=== PATIENT | female | born 1990 | race Asian ===

== ENCOUNTER 2018-02-24 13:43 | Emergency (ER) | payer OTHER ==
--- NOTE | 2018-02-24 15:13 | EDPHY ---
H & P Stated Complaint: ? INFLUENZA FEVER COUGH BODY ACHES Time Seen by Provider: 02/24/18 14:52 HPI/ROS: CHIEF COMPLAINT: Fever, cough, body aches HISTORY OF PRESENT ILLNESS: The patient is a 27-year-old female who speaks [place] only who comes to the emergency department complaining of fever, body aches, cough, runny nose and sore throat for the last 3 days. She is actually feeling better today in her fever is gone. She was told by friends that she may have the flu and she come to the ER. No GI symptoms. No rashes. No trauma. Severity: Moderate Modifying factors: Time REVIEW OF SYSTEMS: Constitutional: See HPI EENTM: See HPI Respiratory: See HPI Cardiac: denies: chest pain, irregular heart rate, lightheadedness, palpitations Gastrointestinal/Abdominal: denies: abdominal pain, diarrhea, nausea, vomiting, blood streaked stools Genitourinary: denies: dysuria, frequency, hematuria, pain Musculoskeletal: See HPI Skin: denies: lesions, rash, jaundice, bruising Neurological: denies: headache, numbness, paresthesia, tingling, dizziness, weakness Hematologic/Lymphatic: denies: blood clots, easy bleeding, easy bruising Immunologic/allergic: denies: HIV/AIDS, transplant 10 systems reviewed and negative except as noted EXAM: GENERAL: Well-appearing, well-nourished and in no acute distress. HEAD: Atraumatic, normocephalic. EYES: Pupils equal round and reactive to light, extraocular movements intact, sclera anicteric, conjunctiva are normal. ENT: TMs normal, nares patent, oropharynx clear without exudates. Moist mucous membranes. NECK: Normal range of motion, supple without lymphadenopathy or JVD. LUNGS: Breath sounds clear to auscultation bilaterally and equal. No wheezes rales or rhonchi. HEART: Regular rate and rhythm without murmurs, rubs or gallops. ABDOMEN: Soft, nontender, normoactive bowel sounds. No guarding, no rebound. No masses appreciated. BACK: No CVA tenderness, no spinal tenderness, step-offs or deformities EXTREMITIES: Normal range of motion, no pitting or edema. No clubbing or cyanosis. NEUROLOGICAL: Cranial nerves II through XII grossly intact. Normal speech, normal gait. 5/5 strength, normal movement in all extremities, normal sensation , normal reflexes PSYCH: Normal mood, normal affect. SKIN: Warm, dry, normal turgor, no visible rashes or lesions. 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) - Personal History LMP (Females 10-55): 15-21 Days Ago Current Tetanus Diphtheria and Acellular Pertussis (TDAP): Unsure - Medical/Surgical History Hx Asthma: No Hx Chronic Respiratory Disease: No Hx Diabetes: No Hx Cardiac Disease: No Hx Renal Disease: No Hx Cirrhosis: No Hx Alcoholism: No Hx HIV/AIDS: No Hx Splenectomy or Spleen Trauma: No Other PMH: DENIES - Family History Significant Family History: No pertinent family hx - Social History Smoking Status: Never smoked Alcohol Use: Sober Drug Use: None Constitutional: Initial Vital Signs Temperature (C) 36.8 C 02/24/18 13:52 Heart Rate 86 02/24/18 13:52 Respiratory Rate 16 02/24/18 13:52 Blood Pressure 114/67 02/24/18 13:52 O2 Sat (%) 98 02/24/18 13:52 O2 Delivery Mode Room Air Allergies/Adverse Reactions: No Known Allergies Allergy (Unverified 02/24/18 13:50) Home Medications: Medication Instructions Recorded Med For [place] Fever 02/24/18 Medical Decision Making ED Course/Re-evaluation: After considerable amount of time we are able to get a queen's counsel on the audio line only. The patient states that her symptoms are improving overall. She was told that there is a lot of flu right now here and [place] which is not true. She came from [facility] about 2 and half weeks ago. She is not aware of flu outbreak there. This most likely viral syndrome. She is improving with conservative management. I encouraged her to continue this. We discussed indications for returning. Differential Diagnosis: Partial list of the Differential diagnosis considered include but were not limited to; viral syndrome, influenza and although unlikely based on the history and physical exam, I also considered pneumonia, sepsis, meningitis. I discussed these differential diagnoses and the plan with the patient as well as the usual and expected course. The patient understands that the diagnosis is provisional and that in medicine we are not always correct and that further workup is often warranted. Usual and customary warnings were given. All of the patient's questions were answered. The patient was instructed to return to the emergency department should the symptoms at all worsen or return, otherwise to followup with the physician as we discussed. Departure - Departure Disposition: Home, Routine, Self-Care Clinical Impression: Viral syndrome Condition: Fair Instructions: Viral Syndrome (ED) Referrals: NONE *PRIMARY CARE P,. [Primary Care Provider] - As per Instructions Peter Piper MD [Medical Doctor] - As per Instructions
[2018-02-24 15:33] VITALS: BP 100/69
== END 2018-02-24 15:30 | disposition home or self-care (01) ==
DX: B34.9 Viral infection, unspecified (principal)